=== PATIENT | female | born 1965 | race African-American/Black ===

== ENCOUNTER → 2017-02-23 | Outpatient (CLI) | payer BC ==
--- NOTE | 2017-02-23 13:32 | RAD ---
Examination: KUB History: Left upper quadrant pain Findings: Normal intestinal gas pattern without evidence for mass, ascites, or pathologic calcificati on. Degenerative sclerosis involves the symphysis pubis. No visceral enlargement is identified. Impression: No acute process identified. Reported By:
--- NOTE | 2017-02-23 13:33 | RAD ---
Examination: Chest, PA and lateral views History: Left upper quadrant abdominal pain Comparison reference: None Findings: Normal heart size with clear lungs and pleural spaces. There is marked elevation of the rig ht hemidiaphragm. Impression: No acute cardiopulmonary lesion demonstrated. Right diaphragm elevation, chronicity undet ermined. This may be congenital or acquired. Comparison with prior chest imaging would be helpful. Reported By:
== END ==
LOC: RAD 11:11
PROVIDERS: ATTEND Family Medicine
DX: R10.12 Left upper quadrant pain (principal)
CPT/HCPCS: 71020; 74000